=== PATIENT | male | born 1945 | race African-American/Black ===

== ENCOUNTER 2018-05-23 10:55 | Inpatient (IN) ==
[2018-05-23] MEDS ORDERED: DILTIAZEM 50 MG/10 ML VIAL IV STA (11:23)
[2018-05-23] MEDS ORDERED: DILTIAZEM 100 MG VIAL.ADD IV ONE (11:30)
[2018-05-23] MEDS ORDERED: DILTIAZEM 25 MG/5 ML VIAL IV ONE (11:30)
[2018-05-23] MEDS ORDERED: SODIUM CHLORIDE 0.9% 100 ML IV ONE (11:31)
[2018-05-23 11:39] LABS: Basophils % 0.5 % (0.0-0.8); Eosinophils % 0.3 % (0.00-10.9); Hematocrit 49.2 VOL% (42.0-52.0); Hemoglobin 16.5 GM/DL (14.0-18.0); Immature Granulocytes % 0.5 %; Immature Granulocytes Absolute 0.03 #; Lymphocytes # 2.2 10*3/uL (1.4-4.0); Lymphocytes % 33.5 % (21.2-54.2); Mean Corpuscular HGB Conc 33.5 GM/DL (32-36); Mean Corpuscular Hemoglobin 33 PG (27-34); Mean Corpuscular Volume 97.8 FL (87-102); Mean Platelet Volume 12.2 FL (9.6-12.0); Monocytes # 0.5 10*3/uL (0.11-0.8); Monocytes % 7.6 % (1.7-12.7); Neutrophils # 3.8 10*3/uL (1.4-7.4); Neutrophils % 57.6 % (38.7-73.9); Platelet Count 151 T/CUMM (130-400); Red Blood Count 5.03 MC/CUMM (3.8-5.5); White Blood Count 6.6 T/CUMM (4-12)
[2018-05-23 12:01] LABS: INR 1.2; PT Patient Result 13.2 SECS; Partial Thromboplastin Time 25.4 SECS (0-40)
[2018-05-23 12:06] LABS: Albumin 3.7 G/DL (3.4-5.0); Bilirubin,Total 2.4 MG/DL (0.2-1.0); Calcium 9.4 MG/DL (8.5-10.1); Osmolality,Calculated 283.1 MOS/KG (273-304); Potassium 3.6 MMOL/L (3.5-5.1); Thyroid Stimulating Hormone 4.56 uIU/ml (0.358-3.74); Total Protein 7.3 G/DL (6.4-8.3)
[2018-05-23] MEDS: dilTIAZem Drip 125 MG/125 ML PREMIX IV SCH (12:46)
[2018-05-23 12:58] LABS: Barbiturates Screen,Urine Negative (Negative); Benzodiazepines Screen,Urine Negative (Negative); Cannabinoid Screen,Urine Negative (Negative); Opiate Screen,Urine Negative (Negative); Phencyclidine Screen,Urine Negative (Negative)
[2018-05-23] MEDS ORDERED: LEVOFLOXACIN INJ 500 MG in PREMIX 1 EACH IV STA (13:30)
[2018-05-23] MEDS ORDERED: DOCUSATE SODIUM 100 MG CAPSULE PO PRN (13:42)
[2018-05-23] MEDS ORDERED: ONDANSETRON 4 MG/2 ML VIAL IV PRN (13:42)
[2018-05-23] MEDS ORDERED: ACETAMINOPHEN 325 MG TABLET PO PRN (13:42)
[2018-05-23] MEDS ORDERED: AZITHROMYCIN INJ 500 MG in SODIUM CHLORIDE 0.9% 250 ML IV SCH (14:00)
[2018-05-23] MEDS ORDERED: cefTRIAXone 1,000 MG in SODIUM CHLORIDE 0.9% 100 ML IV SCH (14:00)
[2018-05-23 14:38] LABS: Free T4 (Free Thyroxine) 1.76 NG/DL (0.76-1.46)
[2018-05-23] MEDS ORDERED: ASPIRIN EC 81 MG TABLET PO SCH (16:00)
[2018-05-23] MEDS ORDERED: ASPIRIN CHEW 81 MG TABLET PO ONE (16:06)
[2018-05-23] MEDS ORDERED: FUROSEMIDE 40 MG/4 ML VIAL IV ONE (16:10)
[2018-05-23] MEDS ORDERED: INFLUENZA VIRUS VACCINE 0.5 ML SYRINGE IM ONE (16:28)
[2018-05-23] MEDS ORDERED: ENOXAPARIN 40 MG/0.4 ML SYRINGE SUBCUT SCH (16:30)
[2018-05-23] MEDS: NICOTINE 21 MG/24 HR PATCH TRANSDERM SCH (17:13)
[2018-05-23] MEDS: AMIODARONE 200 MG TABLET PO SCH ×2 (17:16→20:28)
[2018-05-23] MEDS: SODIUM CHLORIDE 0.45% 1,000 ML IV SCH (17:22)
[2018-05-23] MEDS: CAPTOPRIL 6.25 MG TABLET PO SCH ×2 (17:45→20:28)
[2018-05-24 04:37] LABS: Basophils % 0.3 % (0.0-0.8); Eosinophils # 0.1 10*3/uL (0.0-0.87); Eosinophils % 0.7 % (0.00-10.9); Hematocrit 41.6 VOL% (42.0-52.0); Immature Granulocytes % 0.1 %; Immature Granulocytes Absolute 0.01 #; Lymphocytes # 2.9 10*3/uL (1.4-4.0); Lymphocytes % 41.9 % (21.2-54.2); Mean Corpuscular HGB Conc 33.7 GM/DL (32-36); Mean Corpuscular Hemoglobin 32 PG (27-34); Mean Corpuscular Volume 95.6 FL (87-102); Mean Platelet Volume 13.2 FL (9.6-12.0); Monocytes # 0.7 10*3/uL (0.11-0.8); Neutrophils # 3.2 10*3/uL (1.4-7.4); Platelet Count 136 T/CUMM (130-400); Red Blood Count 4.35 MC/CUMM (3.8-5.5); Red Cell Distribution Width 15.6 % (9.3-17.3); White Blood Count 6.8 T/CUMM (4-12)
[2018-05-24 05:08] LABS: Albumin 2.8 G/DL (3.4-5.0); Bilirubin,Total 2.1 MG/DL (0.2-1.0); Calcium 8.5 MG/DL (8.5-10.1); Osmolality,Calculated 280.3 MOS/KG (273-304); Potassium 3.6 MMOL/L (3.5-5.1); Total Protein 5.8 G/DL (6.4-8.3)
[2018-05-24] MEDS: SODIUM CHLORIDE 0.45% 1,000 ML IV SCH (06:43)
[2018-05-24] MEDS: NICOTINE 21 MG/24 HR PATCH TRANSDERM SCH (08:01)
[2018-05-24] MEDS: ASPIRIN EC 81 MG TABLET PO SCH (08:01)
[2018-05-24] MEDS: CAPTOPRIL 6.25 MG TABLET PO SCH ×3 (08:01→22:49)
[2018-05-24] MEDS: PANTOPRAZOLE 40 MG TABLET PO SCH (08:01)
[2018-05-24] MEDS: AMIODARONE 200 MG TABLET PO SCH ×2 (08:01→22:49)
[2018-05-24] MEDS ORDERED: POTASSIUM CHLORIDE 20 MEQ/15 ML UDCUP PO ONE (09:24)
[2018-05-24] MEDS ORDERED: MAGNESIUM SULF RIDER 2 GM in PREMIX 1 EACH IV ONE (09:24)
[2018-05-24] MEDS ORDERED: AMIODARONE INJ 150 MG in DEXTROSE 5% 100 ML IV ONE (09:24)
[2018-05-24] MEDS ORDERED: AMIODARONE 200 MG TABLET PO ONE (09:30)
[2018-05-24] MEDS: AZITHROMYCIN INJ 500 MG in SODIUM CHLORIDE 0.9% 250 ML IV SCH (10:12)
[2018-05-24] MEDS: cefTRIAXone 1,000 MG in SYRINGE 1 EACH IV SCH (10:13)
[2018-05-24] MEDS ORDERED: MAGNESIUM SULF RIDER 2 GM in PREMIX 1 EACH IV PRN (11:12)
[2018-05-24] MEDS ORDERED: POTASSIUM CHLORIDE RIDER 10 MEQ in PREMIX 1 EACH IV PRN (11:12)
[2018-05-24] MEDS ORDERED: SODIUM CHLORIDE 0.9% 1,000 ML IV SCH (11:30)
[2018-05-24] MEDS ORDERED: diphenhydrAMINE CAP 25 MG CAPSULE PO ONE (13:30)
[2018-05-24] MEDS ORDERED: DIAZEPAM 5 MG TABLET PO ONE (13:30)
[2018-05-24] MEDS: dilTIAZem Drip 125 MG/125 ML PREMIX IV SCH (13:43)
[2018-05-24] MEDS ORDERED: LIDOCAINE 1% 20 ML VIAL ONE (14:06)
[2018-05-24] MEDS ORDERED: MIDAZOLAM 2 MG/2 ML VIAL ONE (14:07)
[2018-05-24] MEDS ORDERED: fentaNYL 100 MCG/2 ML VIAL ONE (14:07)
[2018-05-24] MEDS ORDERED: HEPARIN 5,000 UNIT/1 ML VIAL ONE (15:03)
[2018-05-24] MEDS ORDERED: LORazepam 2 MG/1 ML VIAL IV ONE (18:38)
[2018-05-24 19:41] LABS: Apearance,Urine CLEAR (Clear); Bilirubin,Urine Negative (Negative); Blood, Urine Large mg/dL (Negative); Glucose,Urine (UA) Negative (Negative); Ketones,Urine Negative (Negative); Nitrite,Urine Negative (Negative); Protein,Urine Negative; RBC,Urine 130 /HPF (0-4); Squamous Epithelial Cell,Urine Occasional /HPF (0-10); Urine Color Yellow (Yellow); Urine Specific Gravity 1.058 (1.001-1.035); WBC,Urine 11 /HPF (0-6)
[2018-05-24] MEDS ORDERED: ZIPRASIDONE 20 MG/1 ML VIAL IM PRN (20:17)
[2018-05-25 05:25] LABS: Basophils % 0.1 % (0.0-0.8); Hematocrit 44.5 VOL% (42.0-52.0); Hemoglobin 14.7 GM/DL (14.0-18.0); Immature Granulocytes % 0.4 %; Immature Granulocytes Absolute 0.04 #; Mean Corpuscular Hemoglobin 33 PG (27-34); Mean Corpuscular Volume 99.1 FL (87-102); Mean Platelet Volume 12.7 FL (9.6-12.0); Monocytes # 0.7 10*3/uL (0.11-0.8); Monocytes % 7.5 % (1.7-12.7); Neutrophils # 7.6 10*3/uL (1.4-7.4); Platelet Count 120 T/CUMM (130-400); Red Blood Count 4.49 MC/CUMM (3.8-5.5); Red Cell Distribution Width 15.8 % (9.3-17.3); White Blood Count 9.3 T/CUMM (4-12)
[2018-05-25 05:38] LABS: Albumin 3.3 G/DL (3.4-5.0); Bilirubin,Total 2.9 MG/DL (0.2-1.0); Calcium 9.2 MG/DL (8.5-10.1); Osmolality,Calculated 279.4 MOS/KG (273-304); Potassium 4.9 MMOL/L (3.5-5.1); Total Protein 6.8 G/DL (6.4-8.3)
[2018-05-25 05:48] LABS: Troponin I 0.147 NG/ML (0.00-0.045)
[2018-05-25 05:49] LABS: INR 1.3; PT Patient Result 13.9 SECS
[2018-05-25] MEDS: cefTRIAXone 1,000 MG in SYRINGE 1 EACH IV SCH (08:38)
[2018-05-25] MEDS: AZITHROMYCIN INJ 500 MG in SODIUM CHLORIDE 0.9% 250 ML IV SCH (08:38)
[2018-05-25] MEDS: ASPIRIN EC 81 MG TABLET PO SCH (08:39)
[2018-05-25] MEDS: PANTOPRAZOLE 40 MG TABLET PO SCH (08:39)
[2018-05-25] MEDS: AMIODARONE 200 MG TABLET PO SCH ×2 (08:39→20:49)
[2018-05-25] MEDS: CAPTOPRIL 6.25 MG TABLET PO SCH ×2 (09:01→15:42)
[2018-05-25] MEDS: NICOTINE 21 MG/24 HR PATCH TRANSDERM SCH (09:01)
[2018-05-26 04:50] LABS: Basophils % 0.3 % (0.0-0.8); Eosinophils % 0.3 % (0.00-10.9); Hematocrit 42.2 VOL% (42.0-52.0); Hemoglobin 14.5 GM/DL (14.0-18.0); Immature Granulocytes % 0.3 %; Immature Granulocytes Absolute 0.02 #; Lymphocytes # 2.5 10*3/uL (1.4-4.0); Lymphocytes % 33.5 % (21.2-54.2); Mean Corpuscular HGB Conc 34.4 GM/DL (32-36); Mean Corpuscular Hemoglobin 33 PG (27-34); Mean Corpuscular Volume 95.5 FL (87-102); Mean Platelet Volume 12.5 FL (9.6-12.0); Monocytes # 0.7 10*3/uL (0.11-0.8); Monocytes % 9.9 % (1.7-12.7); Neutrophils # 4.1 10*3/uL (1.4-7.4); Neutrophils % 55.7 % (38.7-73.9); Platelet Count 102 T/CUMM (130-400); Red Blood Count 4.42 MC/CUMM (3.8-5.5); Red Cell Distribution Width 15.6 % (9.3-17.3); White Blood Count 7.4 T/CUMM (4-12)
[2018-05-26 05:18] LABS: Calcium 8.9 MG/DL (8.5-10.1); Osmolality,Calculated 280.4 MOS/KG (273-304); Potassium 4.4 MMOL/L (3.5-5.1)
[2018-05-26] MEDS: CAPTOPRIL 6.25 MG TABLET PO SCH ×4 (06:35→21:30)
[2018-05-26] MEDS: NICOTINE 21 MG/24 HR PATCH TRANSDERM SCH (09:38)
[2018-05-26] MEDS: cefTRIAXone 1,000 MG in SYRINGE 1 EACH IV SCH (09:38)
[2018-05-26] MEDS: AMIODARONE 200 MG TABLET PO SCH ×2 (09:39→21:30)
[2018-05-26] MEDS: AZITHROMYCIN 250 MG TABLET PO SCH (09:39)
[2018-05-26] MEDS: ASPIRIN EC 81 MG TABLET PO SCH (09:40)
[2018-05-26] MEDS: PANTOPRAZOLE 40 MG TABLET PO SCH (09:40)
[2018-05-26] MEDS ORDERED: ALBUTEROL 2.5 MG/3 ML NEB RESP TX PRN (15:43)
[2018-05-27 05:54] LABS: Basophils % 0.3 % (0.0-0.8); Eosinophils % 0.7 % (0.00-10.9); Hematocrit 40.8 VOL% (42.0-52.0); Hemoglobin 13.4 GM/DL (14.0-18.0); Immature Granulocytes % 0.2 %; Immature Granulocytes Absolute 0.01 #; Lymphocytes % 33.5 % (21.2-54.2); Mean Corpuscular HGB Conc 32.8 GM/DL (32-36); Mean Corpuscular Hemoglobin 32 PG (27-34); Mean Corpuscular Volume 98.3 FL (87-102); Mean Platelet Volume 13.3 FL (9.6-12.0); Monocytes # 0.6 10*3/uL (0.11-0.8); Monocytes % 9.5 % (1.7-12.7); Neutrophils # 3.4 10*3/uL (1.4-7.4); Neutrophils % 55.8 % (38.7-73.9); Platelet Count 81 T/CUMM (130-400); Red Blood Count 4.15 MC/CUMM (3.8-5.5); Red Cell Distribution Width 15.7 % (9.3-17.3)
[2018-05-27 06:15] LABS: Albumin 2.6 G/DL (3.4-5.0); Bilirubin,Total 1.6 MG/DL (0.2-1.0); Calcium 8.5 MG/DL (8.5-10.1); Osmolality,Calculated 283.3 MOS/KG (273-304); Potassium 4.2 MMOL/L (3.5-5.1); Total Protein 5.7 G/DL (6.4-8.3)
[2018-05-27 06:49] LABS: Anisocytosis 1+; Hypochromasia Slight; Lymphocytes 26 % (20-55); Platelet Estimate Decreased; Segmented Neutrophils 67 % (50-85); Target Cells Few; Total Cells Counted 100
[2018-05-27 08:45] VITALS: BP 135/91
[2018-05-27] MEDS: AMIODARONE 200 MG TABLET PO SCH (08:49)
[2018-05-27] MEDS: PANTOPRAZOLE 40 MG TABLET PO SCH (08:50)
[2018-05-27] MEDS: ASPIRIN EC 81 MG TABLET PO SCH (08:50)
[2018-05-27] MEDS: AZITHROMYCIN 250 MG TABLET PO SCH (08:50)
[2018-05-27] MEDS: NICOTINE 21 MG/24 HR PATCH TRANSDERM SCH (08:50)
[2018-05-27] MEDS: CAPTOPRIL 6.25 MG TABLET PO SCH (08:50)
[2018-05-27] MEDS: cefTRIAXone 1,000 MG in SYRINGE 1 EACH IV SCH (08:51)
[2018-05-27] MEDS ORDERED: FUROSEMIDE 20 MG TABLET PO SCH (19:01)
== END 2018-05-27 13:43 | disposition home or self-care (01) | DRG 286 ==
LOC: N.ED 10:55 → N.EDINP 13:42 → SUATTDRO 13:42 → N.CC 15:03 → N.TELES 05-25 16:05
PROVIDERS: ADMIT Internal Medicine; ATTEND Internal Medicine
PROC: CLCCHCL (ICD-10-PCS; 2018-05-24 14:15)

== ENCOUNTER 2020-12-30 16:25 | Inpatient (IN) ==
[2020-12-30] MEDS ORDERED: SODIUM CHLORIDE 0.9% 500 ML IV STA (16:56)
[2020-12-30] MEDS ORDERED: THIAMINE 200 MG/2 ML VIAL IV STA (17:00)
[2020-12-30 17:20] LABS: Basophils % 0.1 % (0.0-0.8); Hematocrit 38.1 VOL% (42.0-52.0); Hemoglobin 12.1 GM/DL (14.0-18.0); Immature Granulocytes % 1.7 %; Immature Granulocytes Absolute 0.13 #; Lymphocytes # 0.7 10*3/uL (1.4-4.0); Lymphocytes % 8.4 % (21.2-54.2); Mean Corpuscular HGB Conc 31.8 GM/DL (32-36); Mean Corpuscular Volume 92.9 FL (87-102); Mean Platelet Volume 11.3 FL (9.6-12.0); Neutrophils % 81.8 % (38.7-73.9); Platelet Count 242 T/CUMM (130-400); Red Cell Distribution Width 14.3 % (9.3-17.3); White Blood Count 7.8 T/CUMM (4-12)
[2020-12-30 17:29] LABS: INR 1.1; PT Patient Result 12.2 SECS (10.5-12.0)
[2020-12-30 17:38] LABS: Alanine Aminotransferase 12 U/L (16-61); Albumin 2.4 G/DL (3.4-5.0); Alkaline Phosphatase 46 U/L (45-117); Aspartate Amino Transferase 39 U/L (0-37); Blood Urea Nitrogen 80 MG/DL (7-18); Calcium 7.9 MG/DL (8.5-10.1); Carbon Dioxide 24 MMOL/L (21-32); Estimated Glom Filtration Rate 27 ML/MIN; Glucose 101 MG/DL (74-106); Osmolality,Calculated 317.3 MOS/KG (273-304); Potassium 3.9 MMOL/L (3.5-5.1); Sodium 148 MMOL/L (136-145); Total Protein 6.3 G/DL (6.4-8.2)
[2020-12-30] MEDS ORDERED: DEXTROSE 50% 25 GM/50 ML VIAL IV PRN (18:35)
[2020-12-30] MEDS ORDERED: ACETAMINOPHEN 325 MG TABLET PO PRN (18:35)
[2020-12-30] MEDS ORDERED: ONDANSETRON 4 MG/2 ML VIAL IV PRN (18:35)
[2020-12-30] MEDS ORDERED: GLUCAGON 1 MG VIAL IM PRN (18:35)
[2020-12-30 18:55] LABS: Burr Cells Few; Hypochromasia 1+; Lymphocytes 6 % (20-55); Microcytosis 1+; Platelet Estimate Normal; Segmented Neutrophils 87 % (50-85); Total Cells Counted 100
[2020-12-30] MEDS ORDERED: SODIUM CHLORIDE 0.45% 1,000 ML IV SCH (19:00)
[2020-12-30] MEDS: ENOXAPARIN 30 MG/0.3 ML SYRINGE SUBCUT SCH (19:00)
[2020-12-30 20:11] LABS: Barbiturates Screen,Urine Negative (Negative); Benzodiazepines Screen,Urine Negative (Negative); Cannabinoid Screen,Urine Negative (Negative); Opiate Screen,Urine Negative (Negative); Phencyclidine Screen,Urine Negative (Negative)
[2020-12-30 20:16] LABS: Bilirubin,Urine Negative (Negative); Blood, Urine Small mg/dL (Negative); Glucose,Urine (UA) Negative (Negative); Ketones,Urine Negative (Negative); Mucus,Urine Many /LPF (Occasional); Nitrite,Urine Negative (Negative); Protein,Urine 100 MG/DL; RBC,Urine 4 /HPF (0-4); Urine Appearance Slightly Hazy (Clear); Urine Color Amber (Yellow); Urine Specific Gravity 1.018 (1.001-1.035); Urine Urobilinogen < 2.0 EU/DL (0.2-1.0)
[2020-12-30] MEDS ORDERED: DILTIAZEM 50 MG/10 ML VIAL IV ONE (22:39)
[2020-12-31 05:31] LABS: Basophils % 0.1 % (0.0-0.8); Immature Granulocytes Absolute 0.08 #; Lymphocytes # 0.8 10*3/uL (1.4-4.0); Lymphocytes % 9.2 % (21.2-54.2); Mean Corpuscular Volume 94.3 FL (87-102); Mean Platelet Volume 10.8 FL (9.6-12.0); Neutrophils % 84.7 % (38.7-73.9); Platelet Count 244 T/CUMM (130-400); Red Blood Count 4.77 MC/CUMM (3.8-5.5); Red Cell Distribution Width 14.6 % (9.3-17.3); White Blood Count 8.3 T/CUMM (4-12)
[2020-12-31 05:48] LABS: Albumin 2.5 G/DL (3.4-5.0); Bilirubin,Total 1.5 MG/DL (0.20-1.00); Calcium 8.6 MG/DL (8.5-10.1); Osmolality,Calculated 317.9 MOS/KG (273-304); Potassium 3.7 MMOL/L (3.5-5.1); Total Protein 7.4 G/DL (6.4-8.2)
[2020-12-31 05:50] LABS: Hemoglobin 14.4 GM/DL (14.0-18.0)
[2020-12-31 06:01] LABS: Lymphocytes 4 % (20-55); Platelet Estimate Normal; Segmented Neutrophils 93 % (50-85); Total Cells Counted 100
[2020-12-31] MEDS ORDERED: LACTATED RINGERS 1,000 ML IV SCH (08:00)
[2020-12-31] MEDS: PANTOPRAZOLE 40 MG TABLET PO SCH (09:16)
[2020-12-31] MEDS ORDERED: SODIUM CHLORIDE 0.9% 1,000 ML IV SCH (10:30)
[2020-12-31] MEDS: METOPROLOL TARTRATE 25 MG TABLET PO SCH ×2 (13:16→21:06)
[2020-12-31] MEDS: ASCORBIC ACID 500 MG TABLET PO SCH ×2 (13:16→21:05)
[2020-12-31] MEDS: ASPIRIN EC 325 MG TABLET PO SCH (13:17)
[2020-12-31] MEDS: DEXTROSE 5% 1,000 ML IV SCH (17:31)
[2020-12-31] MEDS: ENOXAPARIN 30 MG/0.3 ML SYRINGE SUBCUT SCH (18:03)
[2021-01-01] MEDS: DEXTROSE 5% 1,000 ML IV SCH ×3 (01:52→21:12)
[2021-01-01 06:27] LABS: Eosinophils % 0.2 % (0.00-10.9); Hematocrit 43.1 VOL% (42.0-52.0); Immature Granulocytes % 1.4 %; Immature Granulocytes Absolute 0.09 #; Lymphocytes # 0.9 10*3/uL (1.4-4.0); Lymphocytes % 13.8 % (21.2-54.2); Mean Corpuscular HGB Conc 32.5 GM/DL (32-36); Mean Corpuscular Volume 93.5 FL (87-102); Mean Platelet Volume 11.6 FL (9.6-12.0); Monocytes % 5.2 % (1.7-12.7); Neutrophils % 79.4 % (38.7-73.9); Platelet Count 239 T/CUMM (130-400); Red Blood Count 4.61 MC/CUMM (3.8-5.5); Red Cell Distribution Width 14.5 % (9.3-17.3); White Blood Count 6.3 T/CUMM (4-12)
[2021-01-01 06:50] LABS: Hypochromasia 1+; Microcytosis 1+; Platelet Estimate Normal
[2021-01-01 06:56] LABS: Calcium 8.6 MG/DL (8.5-10.1); Osmolality,Calculated 294.7 MOS/KG (273-304); Potassium 3.6 MMOL/L (3.5-5.1)
[2021-01-01] MEDS ORDERED: POTASSIUM CHLORIDE 20 MEQ TABLET PO ONE (07:47)
[2021-01-01] MEDS: ASCORBIC ACID 500 MG TABLET PO SCH ×2 (08:37→21:08)
[2021-01-01] MEDS: ASPIRIN EC 325 MG TABLET PO SCH (08:37)
[2021-01-01] MEDS: METOPROLOL TARTRATE 25 MG TABLET PO SCH (08:38)
[2021-01-01] MEDS: PANTOPRAZOLE 40 MG TABLET PO SCH (08:38)
[2021-01-01] MEDS ORDERED: METOPROLOL TARTRATE 25 MG TABLET PO SCH (09:00)
[2021-01-01] MEDS ORDERED: TUBERCULIN SKIN TEST 0.1 ML SYRINGE INTRADERM ONE (09:14)
[2021-01-01] MEDS ORDERED: AMIODARONE INJ 450 MG in DEXTROSE 5% 241 ML IV SCH (13:30)
[2021-01-01] MEDS: ENOXAPARIN 30 MG/0.3 ML SYRINGE SUBCUT SCH (18:01)
[2021-01-01] MEDS: AMIODARONE INJ 450 MG in DEXTROSE 5% 241 ML IV SCH (22:40)
[2021-01-02 05:54] LABS: Basophils % 0.3 % (0.0-0.8); Eosinophils % 0.4 % (0.00-10.9); Hematocrit 45.4 VOL% (42.0-52.0); Hemoglobin 14.9 GM/DL (14.0-18.0); Immature Granulocytes % 1.6 %; Immature Granulocytes Absolute 0.11 #; Lymphocytes # 1.2 10*3/uL (1.4-4.0); Lymphocytes % 17.1 % (21.2-54.2); Mean Corpuscular HGB Conc 32.8 GM/DL (32-36); Mean Corpuscular Volume 92.8 FL (87-102); Mean Platelet Volume 11.9 FL (9.6-12.0); Neutrophils % 74.6 % (38.7-73.9); Platelet Count 179 T/CUMM (130-400); Red Blood Count 4.89 MC/CUMM (3.8-5.5); Red Cell Distribution Width 14.3 % (9.3-17.3)
[2021-01-02 06:22] LABS: Calcium 8.2 MG/DL (8.5-10.1); Osmolality,Calculated 276.7 MOS/KG (273-304); Potassium 4.1 MMOL/L (3.5-5.1)
[2021-01-02] MEDS: DEXTROSE 5% 1,000 ML IV SCH ×2 (06:34→09:49)
[2021-01-02 06:40] LABS: Band Neutrophils 1 % (0-10); Lymphocytes 24 % (20-55); Segmented Neutrophils 71 % (50-85); Total Cells Counted 100
[2021-01-02 06:41] LABS: Hypochromasia 1+; Microcytosis 1+; Platelet Estimate Adequate
[2021-01-02] MEDS ORDERED: AMIODARONE 200 MG TABLET PO SCH ×2 (09:00)
[2021-01-02] MEDS: ASPIRIN EC 325 MG TABLET PO SCH (09:39)
[2021-01-02] MEDS: PANTOPRAZOLE 40 MG TABLET PO SCH (09:39)
[2021-01-02] MEDS: ASCORBIC ACID 500 MG TABLET PO SCH ×2 (09:39→21:15)
[2021-01-02] MEDS: AMIODARONE 200 MG TABLET PO SCH ×3 (09:39→21:16)
[2021-01-02] MEDS: AMIODARONE INJ 450 MG in DEXTROSE 5% 241 ML IV SCH (09:41)
[2021-01-02] MEDS: LACTATED RINGERS 1,000 ML IV SCH (14:46)
[2021-01-02] MEDS: ENOXAPARIN 30 MG/0.3 ML SYRINGE SUBCUT SCH (16:53)
[2021-01-03] MEDS: LACTATED RINGERS 1,000 ML IV SCH ×2 (04:58)
[2021-01-03 09:23] LABS: Calcium 8.1 MG/DL (8.5-10.1); Osmolality,Calculated 273.7 MOS/KG (273-304); Potassium 3.4 MMOL/L (3.5-5.1)
[2021-01-03] MEDS: AMIODARONE 200 MG TABLET PO SCH ×2 (10:35→20:11)
[2021-01-03] MEDS: ASPIRIN EC 325 MG TABLET PO SCH (10:35)
[2021-01-03] MEDS: PANTOPRAZOLE 40 MG TABLET PO SCH (10:35)
[2021-01-03] MEDS: ASCORBIC ACID 500 MG TABLET PO SCH ×2 (10:35→20:11)
[2021-01-03] MEDS: POTASSIUM CHLORIDE INJ 20 MEQ in LACTATED RINGERS 1,000 ML IV SCH (18:03)
[2021-01-03] MEDS: ENOXAPARIN 30 MG/0.3 ML SYRINGE SUBCUT SCH (18:03)
[2021-01-04] MEDS: POTASSIUM CHLORIDE INJ 20 MEQ in LACTATED RINGERS 1,000 ML IV SCH ×3 (05:59→19:00)
[2021-01-04] MEDS: ASPIRIN EC 325 MG TABLET PO SCH (09:06)
[2021-01-04] MEDS: AMIODARONE 200 MG TABLET PO SCH ×2 (09:06→22:07)
[2021-01-04] MEDS: ASCORBIC ACID 500 MG TABLET PO SCH ×2 (09:06→22:07)
[2021-01-04] MEDS: PANTOPRAZOLE 40 MG TABLET PO SCH (09:06)
[2021-01-04] MEDS: ENOXAPARIN 30 MG/0.3 ML SYRINGE SUBCUT SCH (18:21)
[2021-01-05] MEDS: POTASSIUM CHLORIDE INJ 20 MEQ in LACTATED RINGERS 1,000 ML IV SCH (03:51)
[2021-01-05 05:30] LABS: Basophils % 0.2 % (0.0-0.8); Eosinophils # 0.1 10*3/uL (0.0-0.87); Eosinophils % 2.2 % (0.00-10.9); Hemoglobin 11.5 GM/DL (14.0-18.0); Immature Granulocytes % 1.7 %; Immature Granulocytes Absolute 0.11 #; Lymphocytes # 0.8 10*3/uL (1.4-4.0); Lymphocytes % 13.1 % (21.2-54.2); Mean Corpuscular HGB Conc 32.9 GM/DL (32-36); Mean Corpuscular Volume 91.6 FL (87-102); Mean Platelet Volume 11.6 FL (9.6-12.0); Monocytes % 11.4 % (1.7-12.7); Neutrophils % 71.4 % (38.7-73.9); Platelet Count 279 T/CUMM (130-400); Red Blood Count 3.82 MC/CUMM (3.8-5.5); Red Cell Distribution Width 14.2 % (9.3-17.3); White Blood Count 6.4 T/CUMM (4-12)
[2021-01-05 05:51] LABS: Calcium 8.2 MG/DL (8.5-10.1); Osmolality,Calculated 277.3 MOS/KG (273-304); Potassium 3.3 MMOL/L (3.5-5.1)
[2021-01-05 07:04] LABS: Microcytosis Slight; Platelet Estimate Decreased
[2021-01-05 07:55] VITALS: BP 130/71
[2021-01-05] MEDS: ASPIRIN EC 325 MG TABLET PO SCH (08:17)
[2021-01-05] MEDS: PANTOPRAZOLE 40 MG TABLET PO SCH (08:17)
[2021-01-05] MEDS: ASCORBIC ACID 500 MG TABLET PO SCH (08:17)
[2021-01-05] MEDS ORDERED: AMIODARONE 200 MG TABLET PO SCH (09:00)
[2021-01-06] MEDS ORDERED: AMIODARONE 200 MG TABLET PO SCH (09:00)
== END 2021-01-05 11:53 | DRG 682 ==
LOC: EDBD → EDUNIT# → N.ED 16:25 → N.EDINP 16:25 → SUATTDRO 18:11 → N.4E 22:20 → N.TELEN 12-31 01:15 → SUATTDRO 12-31 15:20
PROVIDERS: ADMIT Internal Medicine; ATTEND Internal Medicine Geriatric Medicine